=== PATIENT | male | born 1970 | race Caucasian/White ===

== ENCOUNTER 2016-10-24 08:30 | Emergency (ER) | payer SELFPAY ==
--- NOTE | 2016-10-24 08:55 | ERNOTE ---
<Leeann Saavedra - Last Filed: 10/24/16 11:13> Dyspnea - Date Date of Service: 10/24/16 - General Presenting Symptoms: shortness of breath, difficulty of breathing, other - chest pain Source: patient Exam Limitations: no limitations - Immun/Allergies/Home Medications Immunizations: IMMUNIZATION HX Immunizations Up to Date Yes History of Influenza Vaccine Yes Hx Pneumococcal Vaccination No Allergies/Adverse Reactions: Allergies ibuprofen Adverse Reaction (Mild, Verified 10/24/16 10:29) Nausea Home Medications: HOME MEDICATIONS Albuterol Sulfate [Ventolin Hfa] 2 puff IH Q4H PRN #1 inhaler 10/24/16 [Last Taken Unknown] Doxycycline Monohydrate 100 mg PO BID #20 tablet 10/24/16 [Last Taken Unknown] predniSONE [Prednisone] 3 tab PO DAILY #9 tab 10/24/16 [Last Taken Unknown] - History of Present Illness Narrative: Pt. comes in with c/o L chest pain that radiates to his neck, dyspnea, and cough for 10 days. Pt. denies any fever, aggravating factors, or alleviating factors despite taking a nebulizer treatment. Pt. is from [place] and saw a provider yesterday without diagnosis or new medications. Review of Systems - Review of Systems Constitutional: Present: no symptoms reported. Absent: recent illness, fever, chills, weakness, fatigue, malaise EYE: Present: no symptoms reported ENT: Present: no symptoms reported Respiratory: Present: shortness of breath, cough. Absent: wheezing Cardiology: Present: chest pain. Absent: palpitations, edema Gastrointestinal/Abdominal: Present: no symptoms reported. Absent: nausea, vomiting, diarrhea, abdominal pain Genitourinary: Present: no symptoms reported Musculoskeletal: Present: neck pain - L lateral neck Skin: Present: no symptoms reported. Absent: rash, change in hair/nails Neurological: Present: no symptoms reported. Absent: headache, dizziness/light- headedness, numbness, tingling All Other Systems: All systems neg except as marked - Patient's Past Medical History Patient History - Cardiac/Respiratory: Asthma, Hyperlipidemia Physical Exam - Physical Exam General Appearance: Present: wd/wn, alert, no apparent distress Eye Exam: Normal inspection: bilateral, PERRL: bilateral, EOMI: bilateral Ears, Nose, Throat: Present: normal ENT inspection, normal pharynx Neck: Present: normal inspection, nontender. Absent: lymphadenopathy (R), lymphadenopathy (L) Respiratory: Present: no respiratory distress, no accessory muscle use, chest nontender, decreased breath sounds Cardiovascular/Chest: Present: regular rate, rhythm, no murmur, normal peripheral pulses Back Exam: Present: normal inspection, normal range of motion, no CVA tenderness , no vertebral tenderness ED Progress - Date and Time Seen: Date and Time: 10/24/16 11:13 As pt. has elevated crfeatnine will have pt. increase fluid intake. Also feel taht pt. has viral bronchitis with asthma exacerbation so will start on Prednisone and inhaler and doxycycline to prevent pneumonia. - Results and Orders Patient's Lab Results:: I have reviewed the patient's lab results. - Vital Signs Patient's Vital Signs:: I have reviewed the patient's vital signs. Vital Signs: Vital Signs 10/24/16 10/24/16 08:41 09:57 Temperature 36.9 C Pulse Rate 94 73 Respiratory 23 H 15 Rate Blood Pressure 130/85 161/94 O2 Sat by Pulse 94 95 Oximetry - Progress/Reassessment Chief Complaint: Dyspnea Departure Clinical Impression: Bronchitis, Renal insufficiency - Departure Disposition: Home self-care Condition: Good Instructions: Acute Kidney Injury, Acute Bronchitis, [id number], Asthma, Adult, [id number], Basic Metabolic Panel Additional Instructions: Please follow up with priomary provider to discuss kidney labs and increase fluid intake to 8 large glasses of water a day.Finish all antibiotics and take inhaler every four hour for cough and breathing difficulty. Prescriptions: Albuterol Sulfate [Ventolin Hfa] 2 puff IH Q4H PRN #1 inhaler PRN Reason: Shortness Of Breath Doxycycline Monohydrate 100 mg PO BID #20 tablet predniSONE [Prednisone] 3 tab PO DAILY #9 tab <Osei Robins - Last Filed: 10/24/16 17:58> Dyspnea - Immun/Allergies/Home Medications Immunizations: IMMUNIZATION HX Immunizations Up to Date Yes History of Influenza Vaccine Yes Hx Pneumococcal Vaccination No - History of Present Illness Narrative: This patient was entirely managed by our midlevel practitioner, but I was available for consultation. I did not personally see or evaluate this patient, but I did evaluate his EKG. - Patient's Past Medical History Patient History - Medical: No pertinent hx Patient History - Cardiac/Respiratory: Asthma, Hyperlipidemia Patient History - Cancer: No Hx of Cancer Patient History - Surgical Procedures: No surgical history Patient History - Other: None - Social History Living Situations: home Smoking Status: Current every day smoker Have you smoked in the past 12 months: Yes - Immunizations Immunizations Up to Date: Yes Hx Pneumococcal Vaccination: No History of Influenza Vaccine: Yes ED Progress - Vital Signs Vital Signs: Vital Signs 10/24/16 08:41 Temperature 36.9 C Pulse Rate 94 Respiratory 23 H Rate Blood Pressure 130/85 O2 Sat by Pulse 94 Oximetry - EKG EKG read: Interp. by me - sinus rhythm, possible left atrial enlargement, incomplete RBBB
[2016-10-24] MEDS ORDERED: ALBUTEROL SULFATE/IPRATROPIUM 3 ML NEBU IH ONE ×2 (09:32→09:34)
[2016-10-24] MEDS ORDERED: MORPHINE SULFATE 4 MG/ML SYRG IM ONE (10:03)
[2016-10-24 10:22] LABS: Hematocrit 42.4 % (42.0-52.0); Hemoglobin 14.1 gm/dL (13.5-18.0); Mean Cell Volume 86.7 fl (78-100); Mean Corpuscular Hemoglobin 28.8 pg (27-31); Mean Corpuscular Hgb Conc 33.3 g/dl (32-36); Mean Platelet Volume 9.9 fl (6.0-9.5); Neutrophil # 7.5 K/mm3 (1.3-6.0); Neutrophil % 73.5 % (42-75.0); Platelet Count 163 K/mm3 (150-450); Red Blood Count 4.89 M/mm3 (4.7-6.0); Red Cell Distribution Width 12.4 % (11.5-14.0); White Blood Count 10.2 K/mm3 (4.0-10.5)
[2016-10-24] MEDS ORDERED: MORPHINE SULFATE 4 MG/ML SYRG ONE (10:28)
[2016-10-24 10:39] LABS: Anion Gap 11.3 mmol/L (6.8-13.8); BUN/Creatinine Ratio 10.6 (9.0-21.6); Bilirubin, Total 0.7 mg/dL (0.0-1.1); Ca. Corrected For Albumin 8.9 mg/dL (8.4-10.2); Calcium * 9.2 mg/dL (7.9-10.9); Carbon Dioxide 29.7 mmol/L (24-32.6); Total Protein 7.9 gm/dL (6.2-8.2)
[2016-10-24 11:26] VITALS: BP 151/95
== END 2016-10-24 11:27 | disposition home or self-care (01) ==
LOC: ER 08:30
DX: J20.9 Acute bronchitis, unspecified (principal); Z72.0 Tobacco use; N28.9 Disorder of kidney and ureter, unspecified